=== PATIENT | male | born 1940 ===

== ENCOUNTER 2025-03-12 06:47 | Outpatient (REF) | payer MEDICARE, SELFPAY ==
[2025-03-12 10:34] LABS: MANUAL DIFF FLAG NO
[2025-03-12 10:41] LABS: Hematocrit 43.6 % (42.0-52.0); Hemoglobin 14.8 g/dl (14.0-18.0); Imm Gran Abs Auto 0.00 X10*3/uL (0.00-0.03); Imm Gran Pct Auto 0.0 % (0.0-0.4); Lymphocytes Absolute Auto 1.8 X10*3/uL (1.2-4.9); Mean Corpuscular HGB Conc 33.9 g/dl (31.0-36.0); Mean Corpuscular Hemoglobin 30.1 pg (27.0-33.0); Mean Corpuscular Volume 88.6 fL (80.0-98.0); NRBC Abs Auto 0.000 X10*3/uL (0.0-0.012); NRBC Pct Auto 0.0 /100WBC (0.0-0.2); Platelet Count 153 X10*3/uL (160-400); Red Blood Count 4.92 X10*6/uL (4.60-5.80); White Blood Count 4.7 X10*3/uL (4.8-10.8)
[2025-03-12 10:53] LABS: Alanine Aminotransferase 34 U/L (0-40); Anion Gap 12 (12-20); Aspartate Amino Transferase 32 U/L (5-37); Blood Urea Nitrogen 21 mg/dL (9-16); Calcium 9.6 mg/dL (8.4-10.2); Carbon Dioxide 24 mmol/L (22-29); Chloride 106 mmol/L (96-108); Cholesterol 164 mg/dL (<200); Estimated Glomerular Filt Rate > 60; HDL Cholesterol 48 mg/dL (>40); Potassium 4.3 mmol/L (3.3-5.1); Sodium 138 mmol/L (135-145); Triglycerides 66 mg/dL (<150)
[2025-03-12 10:57] LABS: Hemoglobin A1C 141.5300 umol/L; Total Hemoglobin (HGBA1C) 3822.2697 umol/L
[2025-03-12 11:26] LABS: Microalbum/Creatinine Ratio Ur 22.9 ug/mg cr (<30)
== END 2025-03-12 06:48 | disposition home or self-care (01) ==
LOC: HO.HMGCLDS 06:47
PROVIDERS: PCP Internal Medicine; Visit Provider Internal Medicine
DX: E11.9 Type 2 diabetes mellitus without complications (principal); E78.5 Hyperlipidemia, unspecified; I48.0 Paroxysmal atrial fibrillation
CPT/HCPCS: 36415; 80048; 80061; 82043; 82306; 82570; 83036; 84450; 84460; 85025

== ENCOUNTER 2025-03-15 09:15 | Outpatient (AMB) | payer MEDICARE, SELFPAY ==
--- OUTSIDE RECORDS SUMMARY | 2025-03-15 09:36 | XMS_ITS | Clinical Summary ---
Author Organization [facility] ity Address [address] [place] [address] Care Team Providers Care Director Clinical Research Name Role Phone Prema Messina MD Primary Care Provider Family History Medical History Relation Name Comments CABG Father Relation Name Status Comments Father Social History Tobacco Use Types Packs/Day Years Used Date Smoking Tobacco: Never Smokeless Tobacco: Never Alcohol Use Standard Drinks/Week Comments Yes 1 (1 standard drink = 0.6 oz pur e alcohol) Sex and Gender Information Value Date Recorded Sex Assigned at Not on file Legal Sex Male 8:29 PM EST Gender Identity Not on file Sexual Orientation Not on file Obstetrics History Last Filed Vital Signs Vital Sign Reading Time Taken Comments Blood Pressure 130/70 02/13/2022 12:58 PM EDT Si tting L Arm Pulse 64 02/13/2022 12:58 PM EDT Temperature - - Respiratory Rate - - Oxygen Saturation - - Inhaled Oxygen Concentration - - Weight 95.7 kg (211 lb) 02/13/2022 12:58 PM EDT Height 167.6 cm (5' 6 ) 02/13/2022 12:58 PM EDT Body Mass Index 34.06 02/13/2022 12:58 PM EDT Plan of Treatment Health Maintenance Due Date Last Done Comments DTaP,Tdap,and Td Vaccines (1 - Tdap) 1961 Pneumococcal Vaccine: 50+ Ye ars (1 of 1 - PCV) 1992 Zoster Vaccines (1 of 2) 1992 RSV Immunization Adult Patie nts (1 - 1-dose 75+ series) 2017 Cholesterol Screening (Lipid Panel) 08/04/2022 Depression Screening 08/04/2022 Falls Risk Assessment 08/04/2022 Social Influencers of Health Screening 08/04/2022 Hypertension/CHF/CAD Annual BMP Blood Test 08/12/2022 COVID-19 Vaccine (1 - 2023-2 5 season) 2024 Influenza Vaccine (#1) 2025 HIB Vaccines Aged Out No longer eligi ble based on patient's age to complete this topic HPV Vaccines Aged Out No longer eligi ble based on patient's age to complete this topic Hepatitis A Vaccines Aged Out No long er eligible based on patient's age to complete this topic Hepatitis B Vaccines Aged Out No long er eligible based on patient's age to complete this topic IPV Vaccines Aged Out No longer eligi ble based on patient's age to complete this topic MMR Vaccines Aged Out No longer eligi ble based on patient's age to complete this topic Meningococcal ACWY Vaccine Aged Out N o longer eligible based on patient's age to complete this topic Meningococcal B Vaccine Aged Out No l onger eligible based on patient's age to complete this topic RSV Immunization Patients Un eugenia 20 months Aged Out No longer eligible b ased on patient's age to complete this topic Varicella Vaccines Aged Out No longer eligible based on patient's age to complete this topic Advance Directives Documents on File Type Date Recorded 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
--- OUTSIDE RECORDS SUMMARY | 2025-03-15 09:36 | XMS_ITS | Clinical Summary ---
Author Organization [facility] Address [address] [place] [address] Care Team Providers Care Assembly Inspector Name Role Phone Prema Messina MD Primary Care Provider [phone] Allergies No known active allergies Medications Medication Sig Dispensed Refills Start Date End Date Status Cholecalciferol 25 MCG (1000 UT) capsule Take 1,000 Units by mouth daily. 0 Active pantoprazole (PROTONIX) 40 MG tablet 40 mg daily. 0 Active rivaroxaban (Xarelto) 20 MG TABS tablet Take 20 mg by mouth Every evening with dinner. 0 12/30/2020 Active rosuvastatin (CRESTOR) tablet 5 mg 5 mg daily. 0 Active terazosin (HYTRIN) 5 MG capsule Take 5 mg by mouth 2 (two) times a day. 0 Active Multiple Vitamin (Multivitamin Adult) TABS Take by mouth. 0 Active Social History Tobacco Use Types Packs/Day Years Used Date Smoking Tobacco: Never Smokeless Tobacco: Never Sex and Gender Information Value Date Recorded Sex Assigned at Not on file Gender Identity Not on file Sexual Orientation Not on file Job Start Date Occupation Industry Not on file Not on file Not on file Last Filed Vital Signs Vital Sign Reading Time Taken Comments Blood Pressure 120/78 06/28/2021 11:39 AM EDT Pulse 68 06/28/2021 11:39 AM EDT Temperature 36.7 C (98 F) 06/28/2021 11:39 AM EDT Respiratory Rate - - Oxygen Saturation 98% 06/28/2021 11:39 AM EDT Inhaled Oxygen Concentration - - Weight 93.9 kg (207 lb) 06/28/2021 11:39 AM EDT Height 168.9 cm (5' 6.5 ) 06/28/2021 11:39 AM ED T Body Mass Index 32.91 06/28/2021 11:39 AM EDT Plan of Treatment Health Maintenance Due Date Last Done Comments COVID-19 Vaccine (#1) 1940 Depression Screening 1954 BMI Counseling 1960 Preventative Health Evaluation 1960 DTap / Tdap / Td (1 - Tdap) 1961 Shingrix-Zoster Vaccine (1 of 2) 1992 Fall Risk Assessment 2007 Pneumococcal Vaccine (1 of 1 - PCV) 2007 RSV Adult > 60+ Yrs or Pregn ant (1 - 1-dose 75+ series) 2017 Influenza Vaccine (#1) 2025 Hepatitis B Vaccines Aged Out No long er eligible based on patient's age to complete this topic RSV Ped < 20 months Aged Out No longe r eligible based on patient's age to complete this topic Care Teams Assembly Inspector Relationship Specialty Start Date End Date Prema Messina MD [address] [facility] [place] [address] PCP - General Internal Medicine 06/21/21
[2025-03-15 10:22] VITALS: BP 110/80; PULSE 83; RESP 15; TEMP 36.8; O2SAT 98; BMI 44.0
--- NOTE | 2025-03-15 10:22 | A.OFFPC_ITS ---
Vital Signs 03/15/25 10:22 Height 5 ft 6.5 in Weight 277 lb BMI 44.0 BP 110/80 Blood Pressure Location Lt brachial Position Sitting Respiration 15 Pulse 83 Pulse Source Pulse Oximeter Temp 98.3 F Temp Source Oral Pulse Oximetry (%) 98 Oxygen Delivery Method Room Air Intake Visit Reasons: office visit Intake Note: Pt is here today for his f/u Allergies No Known Allergies Allergy (Verified 11/08/21 12:15) Medication List - Last Reconciled 03/16/25 by Prema Messina MD cholecalciferol (vitamin D3) 50 mcg PO DAILY pantoprazole 40 mg PO BID rivaroxaban 20 mg PO DAILY rosuvastatin 5 mg PO DAILY Tobacco use date assessed: 03/15/25 Fall risk assessment: No Falls in past year Last assessed Fall Risk: 03/15/25 Dental Screening Dental Screen Date: 03/15/25 Did you have a dental visit in the last 12 months?: Yes Did you have a dental problem in the last 6 months where you did not have access to dental care?: No Was dental information given to patient?: Patient has dentist HPI office visit HPI Details 84-year-old male with history persistent atrial fibrillations/p cardiac ablation and pacemaker placement,anticoagulated with rivaroxaban, dyslipidemia diet-controlled diabetes mellitus here today for follow-up. He was in the [facility] for the last 3 years, now back for visit he has been seen there by planning specialist, but would like to see Dr. Harrison again for follow-up. He states that he is scheduled to go back again to the [facility] next month. Has been feeling well, with no complaints of any chest pain, no shortness of breath, no lightheadedness, no abnormal bleeding, no edema. Has history of diabetes mellitus, diet controlled with last hemoglobin A1c without normal limits Had recent fasting labs done which showed normal CBC , electrolytes, renal function serum calcium liver enzymes fasting lipids and vitamin-D level are all within normal limits. [facility] Medical History (Updated 03/16/25 @ 08:27 by Prema Messina MD) History of depression Benign prostatic hyperplasia Diabetes mellitus type 2, diet-controlled Chronic anticoagulation Paroxysmal atrial fibrillation Dyslipidemia Surgical History Status post biventricular pacemaker Hx of left cataract extraction History of cardiac radiofrequency ablation S/P excision of Huston's neuroma Family History Father Coronary artery disease Mother CVA (cerebral vascular accident) Social History Housing: House Alcohol intake: current Patient Tobacco Use Status: Never used Tobacco e-Cigarette/Vaping Use: Never Used Current occupational status: retired Cognitive needs: No Hearing needs: No Vision needs: Yes Questionnaire PHQ-9 Over the last 2 weeks, how often have you been bothered by any of the following problems? 1. Little interest or pleasure in doing things: not at all 2. Feeling down, depressed, or hopeless: not at all 3. Trouble falling or staying asleep, or sleeping too much: not at all 4. Feeling tired or having little energy: not at all 5. Poor appetite or overeating: not at all 6. Feeling bad about yourself - or that you are a failure or have let yourself or your family down: not at all 7. Trouble concentrating on things, such as reading the newspaper or watching television: not at all 8. Moving or speaking so slowly that other people could have noticed. Or the opposite - being so fidgety or restless that you have been moving around a lot more than usual: not at all 9. Thoughts that you would be better off or of hurting yourself in some way: not at all Total score: 0 Depression Screening Interpretation: Negative Depression Screening Done: Yes 78128 - PHQ-9 Billing: Yes Source: Developed by Drs. Ralf Danielle, Eufemia Jasmine, Morteza Roy and colleagues, with an educational christi from [employer]. Thrive Questionnaire Date Thrive assessed: 03/15/25 I am a: Patient What is your living situation today?: I have a steady place to live Within the past 12 months, did the food you bought not last and you didn't have the money to get more?: Never true Within the past 12 months, did you worry whether your food would run out before you got money to buy more?: Never true Do you have trouble paying for medicines?: No Do you have trouble getting transportation to medical appointments?: No Do you have trouble paying your heating and electricity bill?: No Do you have trouble taking care of your child, family member or friend?: No Do you have trouble with day-to-day activities such as bathing, preparing meals, shopping, managing finances, etc.?: No Are you currently unemployed and looking for a job?: No Are you interested in more education?: No Currently or been in a relationship where the following occur: No concerns reported THRIVE Score: 0 AUDIT C Alcohol Use Questionnaire (AUDIT-C) 1. How often do you have a drink containing alcohol?: Monthly or less 2. How many drinks containing alcohol do you have on a typical day when you are drinking?: 1 or 2 3. How often do you have six or more drinks on one occasion?: Never Total Score: 1 Score Reviewed/Action Taken: Yes YAMILE-7 AMB Questionnaire YAMILE-7 Date YAMILE - 7 assessed: 03/15/25 Feeling nervous, anxious, or on edge: 0 = Not at all Not being able to stop or control worryin = Not at all Worrying too much about different things: 0 = Not at all Trouble relaxin = Not at all Being so restless that it is hard to sit still: 0 = Not at all Becoming easily annoyed or irritable: 0 = Not at all Feeling afraid as if something awful might happen: 0 = Not at all Total YAMILE-7 score (0-4 normal; 5-9 mild; 10-14 moderate; 15-21 severe): 0 Source: Developed by Drs. Ralf Danielle, Eufemia Jasmine, Morteza Roy and colleagues, with an educational christi from [employer]. YAMILE-7 Assessment Billing YAMILE-7 Assessment Tool: YAMILE-7 Assessment 98023 Review of Systems Const Denies body aches, Denies fatigue, Denies fever(s), Denies headache(s) and Denies weakness Eyes Denies change in vision ENT Denies dizziness and Denies headache(s) Card Denies chest pain, Denies lightheadedness and Denies palpitations Resp Denies chest congestion, Denies cough and Denies wheezing GI Denies abdominal pain, Denies change in bowel habits and Denies heartburn Reports no additional complaints Musc Reports no additional complaints Skin/Breast Denies lesions and Denies rash Neuro Denies dizziness, Denies headache(s) and Denies weakness Psych Reports no additional complaints Endo Denies fatigue, Denies polydipsia, Denies polyuria and Denies palpitations Rodolfo/Lymph Denies easy bruising Aller/Immun Denies wheezing Physical exam (Primary Care) Vital Signs: Last Vital Signs Temp 98.3 F 03/15/25 10:22 Pulse 83 03/15/25 10:22 Resp 15 03/15/25 10:22 BP 110/80 03/15/25 10:22 Pulse Ox 98 03/15/25 10:22 Oxygen Delivery Method Room Air 03/15/25 10:22 BMI result Body Mass Index 44.0 Tobacco/Smoking Status: Tobacco use Status Tobacco use date assessed 03/15/25 03/15/25 10:36 Patient Tobacco Use Status Never used Tobacco 03/15/25 10:23 e-Cigarette/Vaping Use Never Used 03/15/25 10:23 PHQ-9: PHQ-9 Score PHQ-9: Total score 0 03/15/25 11:29 Depression Screening Interpretation: Negative Thrive Assessment: Date of Thrive Assessment Date Thrive assessed 03/15/25 03/15/25 10:36 Currently or been in a relationship where the following occur: No concerns reported Advance Care Planning discussion: Exists, not on file Const General: cooperative, comfortable and no acute distress Orientation/consciousness: patient oriented x3 HENMT Ears: hearing grossly normal bilaterally, external ears normal, TM's normal bilaterally and EAC's normal General nose exam: Normal external nose present Mouth: Normal oral and palatal mucosa present, oropharynx normal and moist mucous membranes Eyes General: appearance normal, both eyes and all related structures Conjunctivae: conjunctivae normal Pupils: Equal, round and reactive pupils present EOM: EOMs intact bilaterally Neck Neck: Yes full ROM, Yes no lymphadenopathy and Yes supple Chest Chest palpation & inspection: normal inspection of the chest Resp Effort & Inspection: normal respiratory effort and able to speak in complete sentences Auscultation: clear to auscultation bilaterally Cardio Rate: regular rate Rhythm: regular rhythm Heart sounds: S1 normal heart sound present and S2 normal heart sound present GI Inspection: Yes normal to inspection Palpation (GI): Soft to palpation and nontender Auscultation: normal bowel sounds Skin General skin exam: no rashes or lesions noted Neuro General: patient oriented x3, gait normal, tone normal, moves all extremities, Normal light touch and pain sensation and no focal motor deficits Cranial nerves: Yes Equal, round and reactive pupils present Cognition (Neuro): normal cognition Gait exam (Neuro): Normal gait present Motor exam (neuro): 5/5 motor strength present throughout Extrem General: Yes full ROM, Yes no joint enlargement, Yes no clubbing, cyanosis or edema, Yes no calf tenderness and Yes normal gait Psych Appearance: grossly normal and well kempt Mental Status: mental status grossly normal Speech and movement: Normal speech and movement present Affect: normal affect Immunizations pneumoc 20-jack conj-dip cr(PF) 0.5 mL IM syringe Performing Provider: Prema Messina MD Performing Location: [facility] Administered by: Amisha Mcintyre CMA on 03/15/25 11:29 Dose Route Admin Location Dispensed Lot Number Expiration Date [facility] Retail Sales Professional 0.5 mL IM Left Deltoid 0.5 mL [id number] 03/15/25 0196-0754-16 [employer] Total Dispensed Waste 0.5 mL 0 % VIS Given Date VIS Provided VIS Publication Date 03/15/25 Single Vaccine 25 Eligibility Eligibility Date Funding Source Not [facility] Eligible 03/15/25 Private Results Reviewed Results Reviewed: Name: Roger Wall Age/Sex: 84/M : 1940 Unit#: [id number] Attend Dr: Prema Messina MD Re03/12/25 Status: DEP REF Location: [facility] Disch: SPEC : [id number] DI: 03/12/25 STATUS: COMP REQ : [id number] RECD: 03/12/25-[address]: Prema Messina MD COMP: 03/12/25 ENTERED: 03/12/[address]: ORDERED: CBC Auto Diff Test Result Flag Reference WBC 4.7 L 4.8-10.8 X10*3/uL RBC 4.92 4.60-5.80 X10*6/uL HGB 14.8 14.0-18.0 g/dl HCT 43.6 42.0-52.0 % MCV 88.6 80.0-98.0 fL MCH 30.1 27.0-33.0 pg MCHC 33.9 31.0-36.0 g/dl RDW 13.0 11.0-16.0 % PLT 153 L 160-400 X10*3/uL MPV 10.4 9.4-12.4 fL Neut Pct Auto 36.4 L 45-73 % ImGran Pct Auto 0.0 0.0-0.4 % Lymp Pct Auto 37.3 20-40 % Fulton Pct Auto 8.2 2-11 % Eos Pct Auto 17.3 H 0-4 % Baso Pct Auto 0.8 0-2 % NRBC Pct Auto 0.0 0.0-0.2 /100WBC ANC Neut Abs # 1.7 L 2.0-8.3 x10*3/uL ImGran Abs Auto 0.00 0.00-0.03 X10*3/uL Lymph Abs Auto 1.8 1.2-4.9 X10*3/uL Fulton Abs Auto 0.4 0.1-1.2 X10*3/uL Eos Abs Auto 0.8 H 0.0-0.4 X10*3/uL Baso Abs Auto 0.0 0.0-0.2 X10*3/uL NRBC Abs Auto 0.000 0.0-0.012 X10*3/uL Name: Roger Wall Age/Sex: 84/M : 1940 Unit#: [id number] Attend Dr: Prema Messina MD Re03/12/25 Status: DEP REF Location: [facility] Disch: SPEC : [id number] DI: 03/12/25 STATUS: COMP REQ : [id number] RECD: 03/12/25-[address]: Prema Messina MD COMP: 03/12/25-1112 ENTERED: 03/12/25-[address] [facility] DR: ORDERED: Met Prof Fast, AST, ALT, Lipid Panel, Vitamin D 25-OH Test Result Flag Reference Sodium 138 135-145 mmol/L Potassium 4.3 3.3-5.1 mmol/L CL 106 96-108 mmol/L CO2 24 22-29 mmol/L Gap 12 12-20 BUN 21 H 9-16 mg/dL Creat 1.07 0.5-1.4 mg/dL eGFR > 60 Chronic Kidney Disease: Estimated GFR < 60 mL/min/1.73m2 Severe Kidney Disease: Estimated GFR < 15 mL/min/1.73m2 FBS 100 H 60-99 mg/dL A fasting glucose from 100-125 mg/dl is considered impaired (pre-diabetes). CA 9.6 8.4-10.2 mg/dL AST (GOT) 32 5-37 U/L ALT (GPT) 34 0-40 U/L Triglyceride 66 <150 mg/dL Desirable Triglyceride: less than 150 mg/dL Borderline High Triglyceride 150-199 mg/dL High Triglyceride: 200-499 mg/dL Very High Triglyceride: greater than or equal to 5OO mg/dL Cholesterol 164 <200 mg/dL Desirable Cholesterol: less than 200 mg/dL Borderline High Cholesterol: 200-239 mg/dL High Cholesterol: greater than 239 mg/dL LDL Calculated 103 H <100 mg/dL Desirable LDL: less than 100 mg/dL Near Optimal/Above Optimal LDL: 110-129 mg/dL Borderline High LDL: 130-159 mg/dL High LDL: 160-189 mg/dL Very High LDL: greater than or equal to 190 mg/dL HDL 48 >40 mg/dL Desirable HDL: greater than 40 mg/dL Note: This HDL assay may give artificially low results in patients with liver disease. Vitamin D 25-OH 54.7 >30 ng/mL Health Based Reference Values* < 20 ng/mL Deficient 20-30 ng/mL Insufficient > 30 ng/mL Sufficient Laboratory Tests 03/12/25 03/12/25 07:00 09:55 Estimat Average Glucose 111 Hemoglobin A1c % 5.5 Urine Creatinine 126.40 Urine Microalbumin 29.0 Microalb/Creat Ratio 22.9 Coding Level of Care Code Est Pt Level 4 (49041) Diagnoses Paroxysmal atrial fibrillation I48.0 Status post biventricular pacemaker Z95.0 Dyslipidemia E78.5 Additional Codes PHQ-9 - 80750 - PHQ-9 Billing: Yes ([id number]) Vital Signs *Quality* - Advance Care Planning discussion: Exists, not on file ([id number]) YAMILE-7 Assessment Billing - YAMILE-7 Assessment Tool: YAMILE-7 Assessment 78337 ([id number]) Assessment & Plan Assessment & Plan (1) Paroxysmal atrial fibrillation: Code(s): I48.0 - Paroxysmal atrial fibrillation Category: Medical (2) Status post biventricular pacemaker: Code(s): Z95.0 - Presence of cardiac pacemaker Category: Surgical (3) Dyslipidemia: Code(s): E78.5 - Hyperlipidemia, unspecified Category: Medical Plan Reviewed recent fasting lab results with patient which came back within normal limits. Referred back to Cardiology, to see Dr. Harrison for follow-up Prevnar 20 given today. Reminded to get his yearly diabetes retinopathy screening. Continued on pantoprazole, which he takes as needed for heartburn symptoms, rivaroxaban 20 mg daily and vitamin-D 3 supplements T mcg once a day and rosuvastatin 5 mg daily Orders: Orders Pneumococcal 20 Immunization 03/15/25 Z23 - Encounter for immunization Referrals Cardiology Referral I48.0 - Paroxysmal atrial fibrillation, Z95.0 - Presence of cardiac pacemaker
== END 2025-03-15 11:48 | disposition home or self-care (01) ==
PROVIDERS: PCP Internal Medicine; Visit Provider Internal Medicine
DX: I48.0 Paroxysmal atrial fibrillation (principal); Z95.0 Presence of cardiac pacemaker; E78.5 Hyperlipidemia, unspecified; Z00.00 Encounter for general adult medical examination without abnormal findings

== ENCOUNTER → 2025-03-15 09:15 | Outpatient (BNVA) | payer MEDICARE, SELFPAY | PROVIDERS: PCP Internal Medicine; Visit Provider Internal Medicine | DX: Z23 Encounter for immunization (principal); I48.0 Paroxysmal atrial fibrillation; E78.5 Hyperlipidemia, unspecified; Z95.0 Presence of cardiac pacemaker | CPT/HCPCS: 90471; 90677; 96127; 99212 ==